=== PATIENT | female | born 2000 | race Caucasian/White ===

== ENCOUNTER 2023-07-18 08:52 | Emergency (ER) | payer BC, MEDICAID, SELFPAY ==
--- NOTE | ~2023-07-18 | XR_ITS ---
XR foot LT min 3V DATE: 07/18/2023 09:19 INDICATION: Injury TECHNIQUE: 4 views COMPARISON: None FINDINGS: No fracture, dislocation, periosteal reaction or bone destruction. Joint spaces are preserv ed. No erosive change. IMPRESSION: Negative Reviewed, dictated and finalized at location A. IMPRESSION: Negative
[2023-07-18 09:02] VITALS: BP 122/66; PULSE 106; RESP 20; TEMP 37.2; O2SAT 100
--- NOTE | 2023-07-18 09:04 | ED.LOWEXIN ---
HPI - Extremity Injury (Lower) General Chief Complaint: Extremity Injury, Lower Stated Complaint: left foot Time Seen by Provider: 07/18/23 09:23 Source: patient Mode of arrival: ambulatory Limitations: no limitations History of Present Illness HPI Narrative: 22 y/o female presented for c/o left foot pain and bruising after injury last night. States she was at the gym around 9pm, when she dropped a 45lb rubber plate on the left foot. States she was able to walk but reports pain. 08/25. Has not taken anything for pain. Denies numbness, tingling or weakness. Related Data Home Medications Medication Instructions Recorded Confirmed cyclobenzaprine 10 mg tablet mg 07/18/23 ondansetron 4 mg disintegrating mg 07/18/23 tablet Allergies Allergy/AdvReac Type Severity Reaction Status Date / Time No Known Allergies Allergy Verified 07/18/23 09:07 Review of Systems Review of Systems: CONSTITUTIONAL: Denies body aches, fever, chills CARDIOVASCULAR: Denies chest pain, palpitations, or edema. RESPIRATORY: Denies cough or dyspnea. SKIN: Denies wounds. MUSCULOSKELETAL: Reports left foot pain, bruising NEUROLOGIC: Denies headache, numbness, tingling, or weakness. All systems reviewed & are unremarkable except as noted in HPI and below PMFSH Comments At time of signature, I have reviewed and agree with nursing past medical, surgical, social and family history unless otherwise noted. Please see nursing chart for further information. There is no relevant family history pertinent to the presenting complaint Exam Narrative: GENERAL: Well-appearing CHEST: Speaks in full sentences. No respiratory distress. HEART: Regular rate and rhythm. Normal and equal peripheral pulses. EXTREMITIES: left foot with limited range of motion of toes 1-2 due to subjective pain with movement. Bruising noted to metatarsals 1--4. Linear area of erythema over the 2nd metatarsal. Tender with minimal palpation over metatarsals 1-2. Foot has normal strength and sensation, No open wounds, skin tenting, or obvious deformity; alignment normal, pulse palpable and equal bilaterally, skin warm, dry, pink. Capillary refill less than 3 seconds. SKIN: Warm, dry NEURO: Alert and oriented x3. Course Course Emergency Course: Patient is aware of diagnosis, understands and agrees to treatment plan. Anticipatory guidance given. Patient agrees to follow-up as directed and is aware of reasons to seek care at the emergency department. Portions of this record may have been created with voice recognition software Level of Care: Express Care Visit Vital Signs Vital signs: Reviewed MDM - Extremity Injury (Lower) MDM Narrative Medical decision making narrative: results of x-ray reviewed with patient. Discussed physical exam findings; post op shoe applied. Advised supportive measures and signs/symptoms to go to the ER. Pt is appropriate for outpt treatment and f/u. Differential Diagnosis Differential diagnosis: Likely other (foot fracture, dislocation, contusion, abrasion) Imaging Data Radiologist's impression: Patient: Roosevelt Hampton : 2000 MR#: [id number] Age: 22 Acct:[id number] Loc: [facility]? ? ADM Date: 07/18/23Attending Dr: Ordering Physician: Kiki Knight APRN Date of Service: 07/18/23 Procedure(s): XR foot LT min 3V Accession Number(s): [id number] cc: Kiki Knight APRN; APPLICATION RELEASE MANAGER PHYSICIAN~ XR foot LT min 3V DATE: 07/18/2023 09:19 INDICATION: Injury? TECHNIQUE: 4 views? COMPARISON: None? FINDINGS: No fracture, dislocation, periosteal reaction or bone destruction. Joint spaces are preserved. No erosive change.? IMPRESSION: Negative? Discharge Plan Discharge Clinical Impression: Contusion of left foot Qualifiers: Encounter type: initial encounter Qualified Code(s): S90.32XA - Contusion of left foot, initial encounter Patient Disposition: Home, Self-Care Condition: Stable
== END 2023-07-18 09:43 | disposition home or self-care (01) ==
PROVIDERS: Emergency Provider Nurse Practitioner Family
DX: S90.32XA Contusion of left foot, initial encounter (principal); W20.8XXA Other cause of strike by thrown, projected or falling object, initial encounter
CPT/HCPCS: 73630; 99213; G0463

== ENCOUNTER 2024-02-02 19:30 | Emergency (ER) | payer BC, MEDICAID, SELFPAY ==
[2024-02-02 19:34] VITALS: BP 109/62; PULSE 95; RESP 20; TEMP 36.8; O2SAT 99
--- NOTE | 2024-02-02 19:51 | ED.GENADULT ---
HPI - General Adult General Chief complaint: Upper Respiratory Infection Stated complaint: Cough Source: patient Mode of arrival: ambulatory Limitations: no limitations History of Present Illness HPI narrative: Patient presents for evaluation of cough for the last 3 weeks. Cough is nonproductive. She has mild shortness of breath. No fever, chills, nausea, vomiting, diarrhea, sore throat, otalgia. No recent sick contacts to her knowledge. [employer] no longer works. She has been taking Tylenol, ibuprofen, TheraFlu. She quit smoking in April of this year. No leg swelling. Related Data Allergies Allergy/AdvReac Type Severity Reaction Status Date / Time No Known Allergies Allergy Verified 12/23/23 15:53 Review of Systems Review of Systems: CONSTITUTIONAL: Denies fever, chills, or sweats. EYES: Denies visual changes, redness, or discharge. ENT: Denies rhinorrhea, congestion, sore throat, or otalgia. CARDIOVASCULAR: Denies chest pain, palpitations, or edema. RESPIRATORY: Reports cough mild shortness of breath GASTROINTESTINAL: Denies abdominal pain, nausea, vomiting, or diarrhea. GENITOURINARY: Denies dysuria or hematuria. SKIN: Denies rash or itching. MUSCULOSKELETAL: Denies back pain, joint pain, or myalgia. NEUROLOGIC: Denies headache, numbness, dizziness, or weakness. PSYCHIATRIC: Denies anxiety or depression. PMFSH Past Medical History Medical History No pertinent past medical history Surgical History Surgical History No pertinent past surgical history Family History Family History Mother Family history non-contributory Social History Social History (Updated 02/02/24 @ 19:53 by Santos Warner, [facility], ) Smoking status: Former smoker Substance use: never Gender identity (if verbalized by the patient): Female Sexual Orientation (if Verbalized by the Patient): Straight or Heterosexual Spiritual care concerns: No Exam Narrative: GENERAL: Well-appearing, well-nourished, and in no acute distress. HEAD: Normocephalic, atraumatic. EYES: PERRLA and EOMI. ENT: Nares clear, no rhinorrhea or epistaxis. Mucous membranes moist. Oropharynx without tonsillar hypertrophy exudate or other lesions. Bilateral TMs pearly nova nonbulging NECK: Supple. No adenopathy or masses. No carotid bruits or JVD CHEST: Cough present on exam. Clear to auscultation. No respiratory distress. No wheezes rales or rhonchi HEART: Regular rate and rhythm. No murmur heard. Normal peripheral pulses. ABDOMEN: Soft, nontender, nondistended, normal active bowel sounds. EXTREMITIES: Normal range of motion. No edema. SKIN: Warm, dry, no rash. NEURO: No focal deficits. Alert and oriented x3. PSYCH: Normal mood and affect. Course Course Emergency Course: This is a 23-year-old female who presented for evaluation of cough for the last 3 weeks. Through shared decision making opted to proceed with empiric treatment for CAP given the number cases seen in the community as of late. Will discharge with azithromycin and augmentin. Increase hydration. OTC agents for symptom management. Follow up with primary provider. Go to the ER for worsening symptoms. Pt in agreement with plan of care. Level of Care: Express Care Visit Vital Signs Vital signs: Vital Signs Temperature 36.8 C 02/02/24 19:34 Pulse Rate 95 02/02/24 19:34 Respiratory Rate 20 02/02/24 19:34 Blood Pressure 109/62 02/02/24 19:34 Pulse Oximetry 99 02/02/24 19:34 Oxygen Delivery Room Air 02/02/24 19:34 Temperature 36.8 C 02/02/24 19:34 Pulse Rate 95 02/02/24 19:34 Respiratory Rate 20 02/02/24 19:34 Blood Pressure 109/62 02/02/24 19:34 Pulse Oximetry 99 02/02/24 19:34 Oxygen Delivery Room Air 02/02/24 19:34 Medical Decision Making Vital Signs Vital Signs: Vital Signs Temperature 36.8 C 02/02/24 19:34 Pulse Rate 95 02/02/24 19:34 Respiratory Rate 20 02/02/24 19:34 Blood Pressure 109/62 02/02/24 19:34 Pulse Oximetry 99 02/02/24 19:34 Oxygen Delivery Room Air 02/02/24 19:34 Temperature 36.8 C 02/02/24 19:34 Pulse Rate 95 02/02/24 19:34 Respiratory Rate 20 02/02/24 19:34 Blood Pressure 109/62 02/02/24 19:34 Pulse Oximetry 99 02/02/24 19:34 Oxygen Delivery Room Air 02/02/24 19:34 Discharge Plan Discharge Clinical Impression: At risk for pneumonia Patient Disposition: Home, Self-Care Condition: Stable Instructions: Antibiotic Form, Pneumonia (ED) Patient Language: Faroese Prescriptions: New azithromycin 250 mg tablet See Rx Instructions .ROUTE .COMPLEX Qty: 6 0RF Rx Instructions: For 250 mg dose pack: take 500 mg today (day 1), then 250 mg for 4 days (days 2-5) amoxicillin-pot clavulanate 875-125 mg tablet 1 tablet PO Q12H Qty: 20 0RF Follow-up/Referrals: Jamarcus Georges MD [Physician] - Time of Disposition: 19:48
== END 2024-02-02 19:50 | disposition home or self-care (01) ==
PROVIDERS: Emergency Provider Nurse Practitioner
DX: R05.9 Cough, unspecified (principal); R06.02 Shortness of breath
CPT/HCPCS: 99213; G0463